=== PATIENT | female | born 1970 | race Caucasian/White ===

== ENCOUNTER 2016-05-01 13:56 | Emergency (ER) | payer BC, OTHER ==
[2016-05-01 14:08] VITALS: BP 124/69; PULSE 83; TEMP 97.7; BMI 29.7
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
[2016-05-01] MEDS ORDERED: SILVER SULFADIAZINE 1% CREAM 20 GM TUBE TOP ONE (15:17)
== END 2016-05-01 15:28 | disposition home or self-care (01) ==
LOC: EDMC 13:56
DX: S50.811A Abrasion of right forearm, initial encounter (principal); V49.40XA Driver injured in collision with unspecified motor vehicles in traffic accident, initial encounter; K21.9 Gastro-esophageal reflux disease without esophagitis; Z79.899 Other long term (current) drug therapy
CPT/HCPCS: 73090; 73130; 99282; J3490

== ENCOUNTER 2016-05-12 01:14 | Emergency (ER) | payer BC, OTHER ==
[2016-05-12 01:14] VITALS: BMI 29.7
[2016-05-12 01:25] VITALS: TEMP 97.6
[2016-05-12] MEDS ORDERED: IBUPROFEN 800 MG TAB PO ONE (01:41)
[2016-05-12] MEDS ORDERED: PREDNISONE 10 MG TAB PO ONE (01:41)
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
[2016-05-12 02:12] VITALS: BP 130/63; PULSE 63
== END 2016-05-12 02:11 | disposition home or self-care (01) ==
LOC: ED 01:14
DX: G56.01 Carpal tunnel syndrome, right upper limb (principal); K21.9 Gastro-esophageal reflux disease without esophagitis; Z79.899 Other long term (current) drug therapy
CPT/HCPCS: 99283; J3490